=== PATIENT | female | born 1995 | race Caucasian/White ===

== ENCOUNTER 2019-01-12 08:53 | Emergency (ER) | payer BC ==
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
== END 2019-01-12 10:42 | disposition home or self-care (01) ==
LOC: MW.ED 08:53
DX: S06.0X0A Concussion without loss of consciousness, initial encounter (principal); V49.9XXA Car occupant (driver) (passenger) injured in unspecified traffic accident, initial encounter; Z79.899 Other long term (current) drug therapy
CPT/HCPCS: 70450; 70450-26; 99284-25

== ENCOUNTER 2021-01-09 09:07 | Inpatient (IN) | payer OTHER ==
[2021-01-09] MEDS ORDERED: Misoprostol 200 MCG Tab PO PRN (10:38)
[2021-01-09] MEDS ORDERED: Butorphanol 1 MG/ML SDV IVPUSH PRN (10:38)
[2021-01-09] MEDS ORDERED: Sodium Chloride 0.9% 20 ML SDV IV PRN (10:38)
[2021-01-09] MEDS ORDERED: Carboprost Tromethamine 250 MCG/1 ML Amp IM PRN (10:38)
[2021-01-09] MEDS ORDERED: Lidocaine 1% 50 ML MDV INJECT PRN (10:38)
[2021-01-09] MEDS ORDERED: Sodium Chloride 0.9% 2.5 ML Syringe FLUSH PRN (10:38)
[2021-01-09] MEDS ORDERED: Sodium Chloride 0.9% 10 ML Syringe FLUSH PRN (10:38)
[2021-01-09] MEDS ORDERED: Methylergonovine 0.2 MG/1 ML Amp IM PRN (10:38)
[2021-01-09] MEDS ORDERED: Nalbuphine 10 MG/1 ML Vial IVPUSH PRN (10:38)
[2021-01-09] MEDS ORDERED: Water For Irrigation,Sterile 1,000 ML Container IRR PRN (10:38)
[2021-01-09] MEDS ORDERED: Tranexamic Acid 1,000 MG in Sodium Chloride 0.9% 100 ML IV PRN (10:38)
[2021-01-09] MEDS ORDERED: Oxytocin/0.9 % Sodium Chloride 30 UNIT/500 ML BAG IV SCH (10:45)
[2021-01-09] MEDS ORDERED: Ampicillin 2 GM Vial ONE (11:22)
[2021-01-09] MEDS ORDERED: Sodium Chloride 0.9% 100 ML ONE (11:22)
[2021-01-09] MEDS: Lactated Ringers 1,000 ML IV SCH ×2 (11:28→17:41)
[2021-01-09] MEDS ORDERED: Ampicillin 2 GM in Sodium Chloride 0.9% 100 ML IV ONE (11:30)
[2021-01-09 12:20] LABS: BLOOD UREA NITROGEN,BUN 7 mg/dL (7.0-18.0); CARBON DIOXIDE,CO2 21.8 mmol/L (21.0-32.0); CHLORIDE,CL 105 mmol/L (98-107); GLUCOSE RANDOM 97 mg/dL (74-106); POTASSIUM,K 3.9 mmol/L (3.5-5.1); SODIUM,NA 139 mmol/L (136-145)
[2021-01-09] MEDS: Ampicillin 1 GM in Sodium Chloride 0.9% 50 ML IV SCH ×3 (15:30→23:21)
[2021-01-09] MEDS ORDERED: Ropivacaine HCl/PF 200 ML ONE (16:04)
--- NOTE | 2021-01-09 16:13 | PCM.POSTAN ---
POST ANESTHESIA ASSESSMENT - MENTAL STATUS Mental Status: Alert, Oriented - RESPIRATORY Respiratory Status: Respiratory Rate WNL, Airway Patent, O2 Saturation Stable - CARDIOVASCULAR CV Status: Pulse Rate WNL, Blood Pressure Stable - GASTROINTESTINAL GI Status: No Symptoms - POST OP HYDRATION Hydration Status: Adequate & Stable
--- NOTE | 2021-01-09 16:13 | PCM.PREANE ---
Preanesthetic Assessment - Anesthesia/Transfusion/Family Hx Anesthesia History: No Prior Anesthesia Transfusion History: No Prior Transfusion(s) - Review of Systems General: No Symptoms Pulmonary: No Symptoms Cardiovascular: No Symptoms Gastrointestinal: No Symptoms Neurological: No Symptoms Other: Reports: None - Physical Assessment NPO Status Date: 01/09/21 NPO Status Time: 00:00 Height: 5 ft 2 in Weight: 160 lb ASA Class: 2 Mental Status: Alert & Oriented x3 Airway Class: Mallampati = 1 Dentition: Reports: Normal Dentition ROM/Head Extension: Full Lungs: Clear to Auscultation, Normal Respiratory Effort Cardiovascular: Regular Rate, Regular Rhythm - Lab Values: Laboratory Last Values WBC 11.24 K/uL (4.0-11.0) H 01/09/21 10:59 RBC 4.26 M/uL (4.30-5.90) L 01/09/21 10:59 Hgb 13.4 g/dL (12.0-16.0) 01/09/21 10:59 Hct 38.6 % (36.0-46.0) 01/09/21 10:59 MCV 90.6 fL (80.0-98.0) 01/09/21 10:59 MCH 31.5 pg (27.0-32.0) 01/09/21 10:59 MCHC 34.7 g/dL (31.0-37.0) 01/09/21 10:59 RDW Std Deviation 42.8 fl (28.0-62.0) 01/09/21 10:59 RDW Coeff of Irina 13 % (11.0-15.0) 01/09/21 10:59 Plt Count 149 K/uL (150-400) L 01/09/21 10:59 MPV 12.90 fL (7.40-12.00) H 01/09/21 10:59 Nucleated RBC % 0.0 /100WBC 01/09/21 10:59 Nucleated RBCs # 0 K/uL 01/09/21 10:59 Sodium 139 mmol/L (136-145) 01/09/21 10:59 Potassium 3.9 mmol/L (3.5-5.1) 01/09/21 10:59 Chloride 105 mmol/L (98-107) 01/09/21 10:59 Carbon Dioxide 21.8 mmol/L (21.0-32.0) 01/09/21 10:59 BUN 7 mg/dL (7.0-18.0) 01/09/21 10:59 Creatinine 0.6 mg/dL (0.6-1.0) 01/09/21 10:59 Est Cr Clr Drug Dosing 111.39 mL/min 01/09/21 10:59 Estimated GFR (MDRD) > 60.0 ml/min 01/09/21 10:59 Glucose 97 mg/dL (74-106) 01/09/21 10:59 Uric Acid 3.4 mg/dL (2.6-7.2) 01/09/21 10:59 Calcium 8.3 mg/dL (8.5-10.1) L 01/09/21 10:59 Total Bilirubin 0.4 mg/dL (0.2-1.0) 01/09/21 10:59 AST 17 IU/L (15-37) 01/09/21 10:59 ALT 15 IU/L (14-63) 01/09/21 10:59 Alkaline Phosphatase 240 U/L (46-116) H 01/09/21 10:59 Total Protein 6.1 g/dL (6.4-8.2) L 01/09/21 10:59 Albumin 2.6 g/dL (3.4-5.0) L 01/09/21 10:59 Globulin 3.5 g/dL (2.6-4.0) 01/09/21 10:59 Albumin/Globulin Ratio 0.7 (0.9-1.6) L 01/09/21 10:59 Ur Random Creatinine 18.3 mg/dL 01/09/21 10:50 U Random Total Protein < 6.0 mg/dL (<11.9) 01/09/21 10:50 Protein/Creatinin Ratio TNP 01/09/21 10:50 Membrane Rupture POSITIVE 01/09/21 09:10 SARS-CoV-2 RNA (CATERINA) NEGATIVE (NEGATIVE) 01/09/21 10:50 Blood Type O POSITIVE 01/09/21 10:59 Antibody Screen NEGATIVE 01/09/21 10:59 - Allergies Allergies/Adverse Reactions: Allergies Allergy/AdvReac Type Severity Reaction Status Date / Time No Known Allergies Allergy Verified 01/12/19 09:02 - Acknowledgements Anesthesia Type Planned: Epidural Pt an Appropriate Candidate for the Planned Anesthesia: Yes Alternatives and Risks of Anesthesia Discussed w Pt/Guardian: Yes Pt/Guardian Understands and Agrees with Anesthesia Plan: Yes PreAnesthesia Questionnaire - Past Health History Medical/Surgical History: Denies Medical/Surgical History HEENT History: Reports: None Cardiovascular History: Reports: None Respiratory History: Reports: None Gastrointestinal History: Reports: None Genitourinary History: Reports: None TAX TECHNICIAN History: Reports: None Musculoskeletal History: Reports: None Neurological History: Reports: None Psychiatric History: Reports: None Endocrine/Metabolic History: Reports: None Hematologic History: Reports: None Immunologic History: Reports: None Oncologic (Cancer) History: Reports: None Dermatologic History: Reports: None - Past Surgical History Head Surgeries/Procedures: Reports: None HEENT Surgical History: Reports: None Cardiovascular Surgical History: Reports: None Respiratory Surgical History: Reports: None GI Surgical History: Reports: None Female Surgical History: Reports: None Endocrine Surgical History: Reports: None Neurological Surgical History: Reports: None Musculoskeletal Surgical History: Reports: None Oncologic Surgical History: Reports: None Dermatological Surgical History: Reports: None - SUBSTANCE USE Tobacco Use Status *Q: Never Tobacco User Tobacco Use Within Last Twelve Months: No Second Hand Smoke Exposure: No Recreational Drug Use History: No - HOME MEDS Home Medications: Home Meds busPIRone [Buspar] 15 mg PO BID 10/06/17 [History] - CURRENT (IN HOUSE) MEDS Current Meds: Current Medications Butorphanol Tartrate (Butorphanol 1 Mg/Ml Sdv) 1 mg IVPUSH Q1H PRN PRN Reason: Pain (severe 7-10) Carboprost Tromethamine (Carboprost Tromethamine 250 Mcg/1 Ml Amp) 250 mcg IM ASDIRECTED PRN PRN Reason: Post Hemorrhage Lactated Ringer's (Ringers, Lactated) 1,000 mls @ 150 mls/hr IV ASDIRECTED SAVANNAH Last Admin: 01/09/21 11:28 Dose: 150 mls/hr Documented by: Oxytocin/Sodium Chloride (Oxytocin 30 Unit In Ns 0.9% 500 Ml Premix) 30 unit in 500 mls @ 2 mls/hr IV TITRATE SAVANNAH Last Infusion: 01/09/21 14:00 Dose: 4 mls/hr Documented by: Tranexamic Acid 1,000 mg/ (Sodium Chloride) 110 mls @ 660 mls/hr IV ONETIME PRN PRN Reason: Bleeding Ampicillin Sodium 1 gm/ Sodium (Chloride) 50 mls @ 100 mls/hr IV Q4H SAVANNAH Last Admin: 01/09/21 15:30 Dose: 100 mls/hr Documented by: Lidocaine HCl (Lidocaine 1% 50 Ml Mdv) 50 ml INJECT ONETIME PRN PRN Reason: Laceration repair Methylergonovine Maleate (Methylergonovine 0.2 Mg/1 Ml Amp) 0.2 mg IM ASDIRECTED PRN PRN Reason: Post Hemorrhage Misoprostol (Misoprostol 200 Mcg Tab) 200 mcg PO ONETIME PRN PRN Reason: Post Hemorrhage Nalbuphine HCl (Nalbuphine 10 Mg/1 Ml Vial) 10 mg IVPUSH Q1H PRN PRN Reason: Pain (severe 7-10) Sodium Chloride (Sodium Chloride 0.9% 10 Ml Syringe) 10 ml FLUSH ASDIRECTED PRN PRN Reason: Keep Vein Open Sodium Chloride (Sodium Chloride 0.9% 2.5 Ml Syringe) 2.5 ml FLUSH ASDIRECTED PRN PRN Reason: Keep Vein Open Sodium Chloride (Sodium Chloride 0.9% 20 Ml Sdv) 10 ml IV ASDIRECTED PRN PRN Reason: IV Use Sterile Water (Water For Irrigation,Sterile 1,000 Ml Container) 1,000 ml IRR ASDIRECTED PRN PRN Reason: delivery Discontinued Medications Ampicillin Sodium (Ampicillin 2 Gm Vial) Confirm Administered Dose 2 gm .ROUTE .STK-MED ONE Stop: 01/09/21 11:23 Ampicillin Sodium 2 gm/ Sodium (Chloride) 100 mls @ 200 mls/hr IV ONETIME ONE Stop: 01/09/21 11:59 Last Admin: 01/09/21 11:32 Dose: 200 mls/hr Documented by: Sodium Chloride (Normal Saline Advbag) Confirm Administered Dose 100 mls @ as directed .ROUTE .STK-MED ONE Stop: 01/09/21 11:23 Ropivacaine (Naropin 0.2%) Confirm Administered Dose 200 mls @ as directed .ROUTE .STK-MED ONE Stop: 01/09/21 16:05
[2021-01-09] MEDS ORDERED: ePHEDrine 50 MG/ML SDV IVPUSH PRN ×2 (16:15)
[2021-01-09] MEDS ORDERED: Ropivacaine 0.2% 2MG/ML 200 ML Bag EPIDUR SCH (16:15)
--- NOTE | 2021-01-09 16:15 | PCM.SN.2 ---
- Pre-Procedure Checklist Attending Provider Aware: Yes Chart Reviewed: Yes Consent Signed: Yes Labs Reviewed: Yes VS/FHR Reviewed: Yes Patient Identification Confirmation Method: Reports: Chart Visual, ID Band Visual, Verbal Patient Pt an Appropriate Candidate for the Planned Anesthesia: Yes Alternatives and Risks of Anesthesia Discussed w Pt/Guardian: Yes - Procedure Procedure Start Date: 01/09/21 Procedure Start Time: 15:[address]: Reports: Blood Pressure, Heart Rate, SPO2 Functional IV: Yes Safety Measures: Reports: Patient Identified, Procedure Verified, Site Verified, Procedure Time Out Patient Position: Reports: Sitting Prep: Reports: Alcohol x3, Betadine x3 Local Anesthetic: Reports: Intradermal Wheal w Lidocaine 1% Regional Placement Level: Reports: L3-4 Needle: Reports: 17 g Touhy Approach: Reports: Midline Technique: Reports: ROSY Glass Syringe Parasthesia: Reports: None Fluid Obtained: Reports: None Test Dose Medication: Reports: Lidocaine 1.5% w Epinephrine 1:200,000 Test Dose Response: Reports: Negative Continuous Infusion Start Time: 16:05 Continuous Infusion Medication: 0.2 % Naropin Continuous Infusion Rate: 15 Continuous Infusion PCS Bolus Option: 4 Continuous Infusion Lockout Dose (cc/hr): 28 Patient Position Post Placement: Reports: Supline/TYE Post-procedure Pain Level: 3 VS and FHR Monitored in Unit Post Placement: Yes Procedure End Date: 01/09/21 Procedure End Time: 16:55
[2021-01-10] MEDS: Lactated Ringers 1,000 ML IV SCH (00:25)
[2021-01-10] MEDS ORDERED: Acetaminophen 325 MG Tab PO PRN (03:09)
[2021-01-10] MEDS: Ampicillin 1 GM in Sodium Chloride 0.9% 50 ML IV SCH ×6 (03:18→23:32)
[2021-01-10] MEDS ORDERED: fentaNYL 100 MCG/2 ML SDV ONE (04:07)
[2021-01-10] MEDS ORDERED: Ropivacaine HCl/PF 200 ML ONE (04:07)
[2021-01-10] MEDS: Clindamycin Phosphate in D5W 50 ML IV SCH ×3 (04:15→20:38)
--- NOTE | 2021-01-10 09:24 | PCM48HPAN ---
Post Anesthesia Note - EVALUATION WITHIN 48HRS OF ANESTHETIC Vital Signs in Normal Range: Yes Patient Participated in Evaluation: Yes Respiratory Function Stable: Yes Airway Patent: Yes Cardiovascular Function Stable: Yes Hydration Status Stable: Yes Pain Control Satisfactory: Yes Nausea and Vomiting Control Satisfactory: Yes Mental Status Recovered: Yes
--- NOTE | 2021-01-10 09:32 | PCM.DEL ---
L & D Note - General Info Date of Service: 01/10/21 Mother's Due Date: 01/20/21 - Delivery Note Labor: Spontaneous, Augmented by ARM, Augmented by Oxytocin Delivery Outcome: Livebirth Delivery Method: Spontaneous Vaginal Delivery-Single Delivery Mode: Vacuum Extraction Presentation: Right Occiput Anterior (MADALYN) Nuchal Cord: None Prep: Other Anesthesia Type: Epidural Episiotomy Type: None Laceration: Periurethral Suture type: Vicryl Suture size: 3-0 Placenta: Intact, Spontaneous Cord: 3 Vessels Estimated Blood Loss: 200 Resuscitation Needed: Yes : Bulb Syringe Score 1 min: 8 Score 5 min: 9 - General Info Date of Service: 01/10/21 - Patient Data Weight - Most Recent: 72.575 kg I&O - Last 24 Hours: Intake & Output 01/09/21 01/10/21 01/10/21 22:59 06:59 14:59 Output Total 1250 Balance -1250 Lab Results Last 24 Hours: Laboratory Results - last 24 hr 01/09/21 01/09/21 01/09/21 Range/Units 09:10 10:50 10:50 WBC (4.0-11.0) K/uL RBC (4.30-5.90) M/uL Hgb (12.0-16.0) g/dL Hct (36.0-46.0) % MCV (80.0-98.0) fL MCH (27.0-32.0) pg MCHC (31.0-37.0) g/dL RDW Std Deviation (28.0-62.0) fl RDW Coeff of Irina (11.0-15.0) % Plt Count (150-400) K/uL MPV (7.40-12.00) fL Nucleated RBC % /100WBC Nucleated RBCs # K/uL Sodium (136-145) mmol/L Potassium (3.5-5.1) mmol/L Chloride (98-107) mmol/L Carbon Dioxide (21.0-32.0) mmol/L BUN (7.0-18.0) mg/dL Creatinine (0.6-1.0) mg/dL Est Cr Clr Drug Dosing mL/min Estimated GFR (MDRD) ml/min Glucose (74-106) mg/dL Uric Acid (2.6-7.2) mg/dL Calcium (8.5-10.1) mg/dL Total Bilirubin (0.2-1.0) mg/dL AST (15-37) IU/L ALT (14-63) IU/L Alkaline Phosphatase (46-116) U/L Total Protein (6.4-8.2) g/dL Albumin (3.4-5.0) g/dL Globulin (2.6-4.0) g/dL Albumin/Globulin Ratio (0.9-1.6) Ur Random Creatinine 18.3 mg/dL U Random Total Protein < 6.0 (<11.9) mg/dL Protein/Creatinin Ratio TNP Membrane Rupture POSITIVE SARS-CoV-2 RNA (CATERINA) NEGATIVE (NEGATIVE) Blood Type Antibody Screen 01/09/21 01/09/21 01/09/21 Range/Units 10:59 10:59 10:59 WBC 11.24 H (4.0-11.0) K/uL RBC 4.26 L (4.30-5.90) M/uL Hgb 13.4 (12.0-16.0) g/dL Hct 38.6 (36.0-46.0) % MCV 90.6 (80.0-98.0) fL MCH 31.5 (27.0-32.0) pg MCHC 34.7 (31.0-37.0) g/dL RDW Std Deviation 42.8 (28.0-62.0) fl RDW Coeff of Irina 13 (11.0-15.0) % Plt Count 149 L (150-400) K/uL MPV 12.90 H (7.40-12.00) fL Nucleated RBC % 0.0 /100WBC Nucleated RBCs # 0 K/uL Sodium 139 (136-145) mmol/L Potassium 3.9 (3.5-5.1) mmol/L Chloride 105 (98-107) mmol/L Carbon Dioxide 21.8 (21.0-32.0) mmol/L BUN 7 (7.0-18.0) mg/dL Creatinine 0.6 (0.6-1.0) mg/dL Est Cr Clr Drug Dosing 111.39 mL/min Estimated GFR (MDRD) > 60.0 ml/min Glucose 97 (74-106) mg/dL Uric Acid (2.6-7.2) mg/dL Calcium 8.3 L (8.5-10.1) mg/dL Total Bilirubin 0.4 (0.2-1.0) mg/dL AST 17 (15-37) IU/L ALT 15 (14-63) IU/L Alkaline Phosphatase 240 H (46-116) U/L Total Protein 6.1 L (6.4-8.2) g/dL Albumin 2.6 L (3.4-5.0) g/dL Globulin 3.5 (2.6-4.0) g/dL Albumin/Globulin Ratio 0.7 L (0.9-1.6) Ur Random Creatinine mg/dL U Random Total Protein (<11.9) mg/dL Protein/Creatinin Ratio Membrane Rupture SARS-CoV-2 RNA (CATERINA) (NEGATIVE) Blood Type O POSITIVE Antibody Screen NEGATIVE 01/09/21 Range/Units 10:59 WBC (4.0-11.0) K/uL RBC (4.30-5.90) M/uL Hgb (12.0-16.0) g/dL Hct (36.0-46.0) % MCV (80.0-98.0) fL MCH (27.0-32.0) pg MCHC (31.0-37.0) g/dL RDW Std Deviation (28.0-62.0) fl RDW Coeff of Irina (11.0-15.0) % Plt Count (150-400) K/uL MPV (7.40-12.00) fL Nucleated RBC % /100WBC Nucleated RBCs # K/uL Sodium (136-145) mmol/L Potassium (3.5-5.1) mmol/L Chloride (98-107) mmol/L Carbon Dioxide (21.0-32.0) mmol/L BUN (7.0-18.0) mg/dL Creatinine (0.6-1.0) mg/dL Est Cr Clr Drug Dosing mL/min Estimated GFR (MDRD) ml/min Glucose (74-106) mg/dL Uric Acid 3.4 (2.6-7.2) mg/dL Calcium (8.5-10.1) mg/dL Total Bilirubin (0.2-1.0) mg/dL AST (15-37) IU/L ALT (14-63) IU/L Alkaline Phosphatase (46-116) U/L Total Protein (6.4-8.2) g/dL Albumin (3.4-5.0) g/dL Globulin (2.6-4.0) g/dL Albumin/Globulin Ratio (0.9-1.6) Ur Random Creatinine mg/dL U Random Total Protein (<11.9) mg/dL Protein/Creatinin Ratio Membrane Rupture SARS-CoV-2 RNA (CATERINA) (NEGATIVE) Blood Type Antibody Screen Med Orders - Current: Current Medications Acetaminophen (Acetaminophen 325 Mg Tab) 1,000 mg PO Q6H PRN PRN Reason: Tachycardia Butorphanol Tartrate (Butorphanol 1 Mg/Ml Sdv) 1 mg IVPUSH Q1H PRN PRN Reason: Pain (severe 7-10) Carboprost Tromethamine (Carboprost Tromethamine 250 Mcg/1 Ml Amp) 250 mcg IM ASDIRECTED PRN PRN Reason: Post Hemorrhage Ephedrine Sulfate (Ephedrine 50 Mg/Ml Sdv) 10 mg IVPUSH Q5M PRN PRN Reason: Hypotension Ephedrine Sulfate (Ephedrine 50 Mg/Ml Sdv) 10 mg IVPUSH Q1M PRN PRN Reason: Hypotension Lactated Ringer's (Ringers, Lactated) 1,000 mls @ 150 mls/hr IV ASDIRECTED [facility] Last Admin: 01/10/21 00:25 Dose: 150 mls/hr Documented by: Oxytocin/Sodium Chloride (Oxytocin 30 Unit In Ns 0.9% 500 Ml Premix) 30 unit in 500 mls @ 2 mls/hr IV TITRATE [facility] Last Infusion: 01/10/21 09:00 Dose: 999 mls/hr Documented by: Tranexamic Acid 1,000 mg/ (Sodium Chloride) 110 mls @ 660 mls/hr IV ONETIME PRN PRN Reason: Bleeding Ampicillin Sodium 1 gm/ Sodium (Chloride) 50 mls @ 100 mls/hr IV Q4H [facility] Last Admin: 01/10/21 07:36 Dose: 100 mls/hr Documented by: Gentamicin Sulfate 80 mg/ (Sodium Chloride) 52 mls @ 100 mls/hr IV Q8H [facility] Stop: 01/10/21 21:02 Last Admin: 01/10/21 04:45 Dose: 100 mls/hr Documented by: Clindamycin Phosphate (Cleocin In D5w 300 Mg/50 Ml) 50 mls @ 50 mls/hr IV Q8H [facility] Stop: 01/10/21 20:29 Last Admin: 01/10/21 04:15 Dose: 50 mls/hr Documented by: Lidocaine HCl (Lidocaine 1% 50 Ml Mdv) 50 ml INJECT ONETIME PRN PRN Reason: Laceration repair Methylergonovine Maleate (Methylergonovine 0.2 Mg/1 Ml Amp) 0.2 mg IM ASDIRECTED PRN PRN Reason: Post Hemorrhage Miscellaneous Medication (Phenylephrine Hcl In 0.9% Nacl 1 Mg/10 Ml Syringe) 0 .1 mg IVPUSH Q1M PRN PRN Reason: Hypotension Misoprostol (Misoprostol 200 Mcg Tab) 200 mcg PO ONETIME PRN PRN Reason: Post Hemorrhage Nalbuphine HCl (Nalbuphine 10 Mg/1 Ml Vial) 10 mg IVPUSH Q1H PRN PRN Reason: Pain (severe 7-10) Ropivacaine (Ropivacaine 0.2% 2mg/Ml 200 Ml Bag) 400 mg EPIDUR ASDIRECTED SAV[facility] Sodium Chloride (Sodium Chloride 0.9% 10 Ml Syringe) 10 ml FLUSH ASDIRECTED PRN PRN Reason: Keep Vein Open Sodium Chloride (Sodium Chloride 0.9% 2.5 Ml Syringe) 2.5 ml FLUSH ASDIRECTED PRN PRN Reason: Keep Vein Open Sodium Chloride (Sodium Chloride 0.9% 20 Ml Sdv) 10 ml IV ASDIRECTED PRN PRN Reason: IV Use Sterile Water (Water For Irrigation,Sterile 1,000 Ml Container) 1,000 ml IRR ASDIRECTED PRN PRN Reason: delivery Last Admin: 01/10/21 08:46 Dose: 1,000 ml Documented by: Discontinued Medications Ampicillin Sodium (Ampicillin 2 Gm Vial) Confirm Administered Dose 2 gm .ROUTE .STK-MED ONE Stop: 01/09/21 11:23 Last Admin: 01/09/21 19:20 Dose: Not Given Documented by: Fentanyl (Fentanyl 100 Mcg/2 Ml Sdv) Confirm Administered Dose 100 mcg .ROUTE .STK-MED ONE Stop: 01/10/21 04:08 Ampicillin Sodium 2 gm/ Sodium (Chloride) 100 mls @ 200 mls/hr IV ONETIME ONE Stop: 01/09/21 11:59 Last Admin: 01/09/21 11:32 Dose: 200 mls/hr Documented by: Sodium Chloride (Normal Saline Advbag) Confirm Administered Dose 100 mls @ as directed .ROUTE .STK-MED ONE Stop: 01/09/21 11:23 Last Admin: 01/09/21 19:19 Dose: Not Given Documented by: Ropivacaine (Naropin 0.2%) Confirm Administered Dose 200 mls @ as directed .ROUTE .STK-MED ONE Stop: 01/09/21 16:05 Last Admin: 01/09/21 19:20 Dose: Not Given Documented by: Clindamycin Phosphate 300 mg/ (Sodium Chloride) 52 mls @ 100 mls/hr IV Q8H [facility] Stop: 01/11/21 03:47 Ropivacaine (Naropin 0.2%) Confirm Administered Dose 200 mls @ as directed .ROUTE .ST-MED ONE Stop: 01/10/21 04:08 - Problem List & Annotations (1) Vaginal delivery SNOMED Code(s): 619370964 Code(s): O80 - ENCOUNTER FOR FULL-TERM UNCOMPLICATED DELIVERY Status: Acute Current Visit: Yes - Problem List Review Problem List Initiated/Reviewed/Updated: Yes
[2021-01-10] MEDS ORDERED: Ibuprofen 400 MG Tab PO PRN (09:33)
[2021-01-10] MEDS ORDERED: Lanolin 100% Cream 7 GM Tube TOP PRN (09:33)
[2021-01-10] MEDS ORDERED: Bisacodyl 10 MG Supp RECTAL PRN (09:33)
[2021-01-10] MEDS ORDERED: Acetaminophen 500 MG Tab PO PRN (09:33)
[2021-01-10] MEDS ORDERED: Methylergonovine 0.2 MG/1 ML Amp IM PRN (09:33)
[2021-01-10] MEDS ORDERED: Benzocaine/Menthol 20%-0.5% Spray 78 GM Cannister TOP PRN (09:33)
[2021-01-10] MEDS: Acetaminophen 500 MG Tab PO PRN (10:19)
[2021-01-10] MEDS: Witch Hazel Medicated Pads 40/Jar TOP PRN (10:19)
--- NOTE | 2021-01-10 14:02 | OR ---
SURGEON: Anahi Miranda M.D. DATE OF PROCEDURE: 01/10/2021 PREOPERATIVE DIAGNOSES: 1. 38 and 4/7 week intrauterine . 2. Spontaneous rupture of membranes. 3. Mild chorioamnionitis. 4. Group B streptococcus positive. POSTOPERATIVE DIAGNOSES: 1. 38 and 4/7 week intrauterine . 2. Spontaneous rupture of membranes. 3. Mild chorioamnionitis. 4. Group B streptococcus positive. 5. Arrest of descent. PRIMARY SURGEON: Anahi Miranda M.D. ANESTHESIA: Epidural. ESTIMATED BLOOD LOSS: 200 mL. FINDINGS: Liveborn female. scores 8 and 9. Weight 3330 g. Placenta spontaneous, Schultze intact, with three vessels. Periurethral laceration repaired. No other lacerations. COMPLICATIONS: None known. DISPOSITION: Mother and baby are in LDR in good condition. PROCEDURES: 1. Pitocin augmentation of labor. 2. Group B streptococcus prophylaxis. 3. Vacuum-assisted vaginal delivery. 4. Repair of periurethral laceration. BRIEF HISTORY: This is a 25-year-old female. She is G1, P0. She presented at 38 and 3/7 week gestation on 01/09/2021, having had spontaneous rupture of membranes sometime in the evening of 01/08/2021. She presented to Labor and Delivery. She was 3 cm dilated. She did have a forebag which was membrane ruptured, had been documented by [facility]. She was started on ampicillin for group B strep prophylaxis and Pitocin augmentation of labor. IUPC was placed. She progressed to complete at approximately 4:30 a.m. and she was started on ampicillin for group B strep prophylaxis, but gentamicin and clindamycin were added due to tachycardia and mildly elevated maternal temperature, although it was not a fever. DESCRIPTION OF PROCEDURE: With the patient in dorsal lithotomy position, the patient pushed over a 4-1/2 hour time period to a 5+ station, at which time after discussion, the patient did request to proceed with a vacuum-assisted vaginal delivery with risks discussed including vaginal laceration, scalp laceration, cephalohematoma, and intracranial hemorrhage for the baby. Understanding all these risks, she does desire to proceed. The fetus was in a right occiput anterior position. Estimated weight was 3500 g, and she did have a gynecoid pelvis. The bladder had been drained with a straight cath prior to proceeding. After consent was obtained, the vacuum was placed 2 cm anterior to the posterior fontanelle in the midsagittal line and over two contractions with no pop-off, the head was delivered over the perineum with support. The vacuum was removed. Subsequent delivery of the infant's shoulders and body was without difficulty. The was bulb-suctioned by nose and mouth and handed to the mother in the presence of the nurse attending delivery. The infant was a liveborn female, scores of 8 and 9, weighing 3330 g. After 2 minutes, the cord was doubly clamped and cut and the cord blood was collected for cord ABGs as well as routine cord blood sampling. Pitocin was initiated after delivery of the infant to assist with delivery of the placenta which was delivered spontaneously, Schultze intact with three vessels. Upon inspection of the pelvis and perineum, there were no vaginal sidewall, cervical, rectal, or perineal lacerations. There was a significant right periurethral laceration extending in a semi-lunar fashion to the right of the urethra and extending cephalad toward the clitoris. This was bleeding and a deep [id number] suture was placed with 3-0 Vicryl and hemostasis was obtained, and then a running suture was utilized to reapproximate the tissue. Miller catheter had been placed prior to proceeding with repair to define the urethra, and I have recommended that the catheter stay in place for 24 hours. Additionally, there was a small abrasion of the vagina posteriorly at 7 o'clock which was repaired with a [id number] suture of 3-0 Vicryl. Final sponge, needle, and instrument counts were correct. There were no known complications. Mother and baby remained in the LDR in good condition. TIR / CONSTANZA /[id number]
[2021-01-10] MEDS: Docusate Sodium 100 MG Cap PO PRN (22:15)
[2021-01-10] MEDS: busPIRone 5 MG Tab PO SCH (22:15)
[2021-01-11] MEDS: Ampicillin 1 GM in Sodium Chloride 0.9% 50 ML IV SCH ×2 (03:30→07:40)
[2021-01-11] MEDS: busPIRone 5 MG Tab PO SCH ×3 (05:54→22:01)
[2021-01-11] MEDS: Acetaminophen 500 MG Tab PO PRN (07:49)
--- NOTE | 2021-01-11 09:41 | PCM.PNPP ---
- General Info Date of Service: 01/11/21 Subjective Update: Patient seen at bedside , doing well , sandoval removed she voided , , Good pain control Functional Status: Reports: Pain Controlled, Tolerating Diet, Ambulating, Urinating - Review of Systems General: Reports: No Symptoms HEENT: Reports: No Symptoms Pulmonary: Reports: No Symptoms Cardiovascular: Reports: No Symptoms Gastrointestinal: Reports: No Symptoms Genitourinary: Reports: No Symptoms Musculoskeletal: Reports: No Symptoms Skin: Reports: No Symptoms Neurological: Reports: No Symptoms Psychiatric: Reports: No Symptoms - General Info Date of Service: 01/11/21 - Patient Data Vital Signs - Most Recent: Last Vital Signs Temp 36.3 C 01/11/21 08:00 Pulse 75 01/11/21 08:00 Resp 18 01/11/21 08:00 BP 135/86 01/11/21 08:00 Pulse Ox 96 01/11/21 08:00 Weight - Most Recent: 72.575 kg I&O - Last 24 Hours: Intake & Output 01/10/21 01/11/21 01/11/21 22:59 06:59 14:59 Intake Total 152 100 Output Total 2828 0870 979 Balance -5841 -7232 -550 Lab Results - Last 24 Hours: Laboratory Results - last 24 hr 01/10/21 01/11/21 Range/Units 08:59 05:30 Hgb 11.8 L (12.0-16.0) g/dL Hct 34.6 L (36.0-46.0) % Cord ABG pH 7.198 (7.18-7.38) Cord ABG Base Excess -7 (-10--2) Cord VBG pH 7.223 L (7.25-7.45) Cord VBG Base Excess -7 (-10--2) Med Orders - Current: Current Medications Acetaminophen (Acetaminophen 325 Mg Tab) 1,000 mg PO Q6H PRN PRN Reason: Tachycardia Acetaminophen (Acetaminophen 500 Mg Tab) 500 mg PO Q4H PRN PRN Reason: Pain (mild 1-3) Acetaminophen (Acetaminophen 500 Mg Tab) 1,000 mg PO Q4H PRN PRN Reason: Pain (mild 1-3) Last Admin: 01/11/21 07:49 Dose: 1,000 mg Documented by: Benzocaine/Menthol (Benzocaine/Menthol 20%-0.5% [place] 78 Gm Cannister) 78 gm TOP ASDIRECTED PRN PRN Reason: Perineal Comfort Measure Last Admin: 01/10/21 10:21 Dose: 1 can Documented by: Bisacodyl (Bisacodyl 10 Mg Supp) 10 mg RECTAL ONETIME PRN PRN Reason: Constipation Buspirone HCl (Buspirone 5 Mg Tab) 10 mg PO TID [facility] Last Admin: 01/11/21 05:54 Dose: 10 mg Documented by: Butorphanol Tartrate (Butorphanol 1 Mg/Ml Sdv) 1 mg IVPUSH Q1H PRN PRN Reason: Pain (severe 7-10) Carboprost Tromethamine (Carboprost Tromethamine 250 Mcg/1 Ml Amp) 250 mcg IM ASDIRECTED PRN PRN Reason: Post Hemorrhage Docusate Sodium (Docusate Sodium 100 Mg Cap) 100 mg PO Q12H PRN PRN Reason: Constipation Last Admin: 01/10/21 22:15 Dose: 100 mg Documented by: Emollient Ointment (Lanolin 100% Cream 7 Gm Tube) 0 gm TOP ASDIRECTED PRN PRN Reason: Sore Nipples Ephedrine Sulfate (Ephedrine 50 Mg/Ml Sdv) 10 mg IVPUSH Q5M PRN PRN Reason: Hypotension Ephedrine Sulfate (Ephedrine 50 Mg/Ml Sdv) 10 mg IVPUSH Q1M PRN PRN Reason: Hypotension Lactated Ringer's (Ringers, Lactated) 1,000 mls @ 150 mls/hr IV ASDIRECTED [facility] Last Admin: 01/10/21 00:25 Dose: 150 mls/hr Documented by: Oxytocin/Sodium Chloride (Oxytocin 30 Unit In Ns 0.9% 500 Ml Premix) 30 unit in 500 mls @ 2 mls/hr IV TITRATE [facility] Last Infusion: 01/10/21 09:00 Dose: 999 mls/hr Documented by: Tranexamic Acid 1,000 mg/ (Sodium Chloride) 110 mls @ 660 mls/hr IV ONETIME PRN PRN Reason: Bleeding Ibuprofen (Ibuprofen 400 Mg Tab) 400 mg PO Q4H PRN PRN Reason: Pain (mild 1-3) Ibuprofen (Ibuprofen 800 Mg Tab) 800 mg PO Q6H PRN PRN Reason: Cramping Lidocaine HCl (Lidocaine 1% 50 Ml Mdv) 50 ml INJECT ONETIME PRN PRN Reason: Laceration repair Methylergonovine Maleate (Methylergonovine 0.2 Mg/1 Ml Amp) 0.2 mg IM ASDIRECTED PRN PRN Reason: Post Hemorrhage Methylergonovine Maleate (Methylergonovine 0.2 Mg/1 Ml Amp) 0.2 mg IM ONETIME PRN PRN Reason: Excessive Vaginal Bleeding Miscellaneous Medication (Phenylephrine Hcl In 0.9% Nacl 1 Mg/10 Ml Syringe) 0.1 mg IVPUSH Q1M PRN PRN Reason: Hypotension Misoprostol (Misoprostol 200 Mcg Tab) 200 mcg PO ONETIME PRN PRN Reason: Post Hemorrhage Nalbuphine HCl (Nalbuphine 10 Mg/1 Ml Vial) 10 mg IVPUSH Q1H PRN PRN Reason: Pain (severe 7-10) Ropivacaine (Ropivacaine 0.2% 2mg/Ml 200 Ml Bag) 400 mg EPIDUR ASDIRECTED [facility] Sodium Chloride (Sodium Chloride 0.9% 10 Ml Syringe) 10 ml FLUSH ASDIRECTED PRN PRN Reason: Keep Vein Open Sodium Chloride (Sodium Chloride 0.9% 2.5 Ml Syringe) 2.5 ml FLUSH ASDIRECTED PRN PRN Reason: Keep Vein Open Sodium Chloride (Sodium Chloride 0.9% 20 Ml Sdv) 10 ml IV ASDIRECTED PRN PRN Reason: IV Use Sterile Water (Water For Irrigation,Sterile 1,000 Ml Container) 1,000 ml IRR ASDIRECTED PRN PRN Reason: delivery Last Admin: 01/10/21 08:46 Dose: 1,000 ml Documented by: Dianne Gamez (Dianne Gamez Medicated Pads 40/Jar) 1 pad TOP ASDIRECTED PRN PRN Reason: comfort care Last Admin: 01/10/21 10:19 Dose: 1 can Documented by: Discontinued Medications Ampicillin Sodium (Ampicillin 2 Gm Vial) Confirm Administered Dose 2 gm .ROUTE .STK-MED ONE Stop: 01/09/21 11:23 Last Admin: 01/09/21 19:20 Dose: Not Given Documented by: Fentanyl (Fentanyl 100 Mcg/2 Ml Sdv) Confirm Administered Dose 100 mcg .ROUTE .STK-MED ONE Stop: 01/10/21 04:08 Last Admin: 01/10/21 20:06 Dose: Not Given Documented by: Ampicillin Sodium 2 gm/ Sodium (Chloride) 100 mls @ 200 mls/hr IV ONETIME ONE Stop: 01/09/21 11:59 Last Admin: 01/09/21 11:32 Dose: 200 mls/hr Documented by: Ampicillin Sodium 1 gm/ Sodium (Chloride) 50 mls @ 100 mls/hr IV Q4H [facility] Stop: 01/11/21 09:00 Last Admin: 01/11/21 07:40 Dose: 100 mls/hr Documented by: Sodium Chloride (Normal Saline Advbag) Confirm Administered Dose 100 mls @ as directed .ROUTE .[facility] ONE Stop: 01/09/21 11:23 Last Admin: 01/09/21 19:19 Dose: Not Given Documented by: Ropivacaine (Naropin 0.2%) Confirm Administered Dose 200 mls @ as directed .ROUTE .[facility] ONE Stop: 01/09/21 16:05 Last Admin: 01/09/21 19:20 Dose: Not Given Documented by: Gentamicin Sulfate 80 mg/ (Sodium Chloride) 52 mls @ 100 mls/hr IV Q8H [facility] Stop: 01/10/21 21:02 Last Admin: 01/10/21 22:14 Dose: 100 mls/hr Documented by: Clindamycin Phosphate 300 mg/ (Sodium Chloride) 52 mls @ 100 mls/hr IV Q8H [facility] Stop: 01/11/21 03:47 Clindamycin Phosphate (Cleocin In D5w 300 Mg/50 Ml) 50 mls @ 50 mls/hr IV Q8H [facility] Stop: 01/10/21 20:29 Last Admin: 01/10/21 20:38 Dose: 50 mls/hr Documented by: Ropivacaine (Naropin 0.2%) Confirm Administered Dose 200 mls @ as directed .ROUTE .[facility] ONE Stop: 01/10/21 04:08 Last Admin: 01/10/21 20:06 Dose: Not Given Documented by: - Recovery Exam Fundal Tone: Firm Fundal Level: 1 Fingerbreadths Below Umbilicus Fundal Placement: Midline Lochia Amount: Scant, Small Lochia Color: Rubra/Red Perineum Description: Other (see below) Other Perinuem Description: daphnie urethral laceration with repair. Episiotomy/Laceration: Approximated Bladder Status: Voiding Urinary Elimination: Voided - Exam General: Alert HEENT: Pupils Equal Neck: Supple Lungs: Clear to Auscultation, Normal Respiratory Effort Cardiovascular: Regular Rate, Regular Rhythm GI/Abdominal Exam: Normal Bowel Sounds Extremities: Normal Inspection, Normal Range of Motion Psy/Mental Status: Alert - Problem List & Annotations (1) Vaginal delivery SNOMED Code(s): 563898937 Code(s): O80 - ENCOUNTER FOR FULL-TERM UNCOMPLICATED DELIVERY Status: Acute Current Visit: Yes - Problem List Review Problem List Initiated/Reviewed/Updated: Yes - Assessment Assessment:: 25yo P1 s/p PPD1 Rh positive , Rubella Immune , GBS positive - received ampicillin Suspected chorio - recieved antiobiotics till today No fevers - Plan Plan:: Routine care Pain control as needed Continue ambulation Regular diet Anticipate discharge tomorrow
[2021-01-11] MEDS: Ibuprofen 800 MG Tab PO PRN (22:00)
[2021-01-11] MEDS: Docusate Sodium 100 MG Cap PO PRN (22:00)
[2021-01-11] MEDS: Witch Hazel Medicated Pads 40/Jar TOP PRN (22:01)
[2021-01-12] MEDS: busPIRone 5 MG Tab PO SCH (06:07)
[2021-01-12] MEDS: Ibuprofen 800 MG Tab PO PRN (09:03)
--- NOTE | 2021-01-12 09:24 | PCM.PNPP ---
- General Info Date of Service: 01/12/21 Subjective Update: Patient doing well this morning. has improved. Pain well controlled, minimal lochia. Functional Status: Reports: Pain Controlled, Tolerating Diet, Ambulating, Urinating - Review of Systems General: Reports: No Symptoms HEENT: Reports: No Symptoms Pulmonary: Reports: No Symptoms Cardiovascular: Reports: No Symptoms Gastrointestinal: Reports: No Symptoms Genitourinary: Reports: No Symptoms Musculoskeletal: Reports: No Symptoms Skin: Reports: No Symptoms Neurological: Reports: No Symptoms Psychiatric: Reports: No Symptoms - Patient Data Vital Signs - Most Recent: Last Vital Signs Temp 36.8 C 01/12/21 08:00 Pulse 68 01/12/21 08:00 Resp 18 01/12/21 08:00 BP 129/89 01/12/21 08:00 Pulse Ox 96 01/12/21 08:00 Weight - Most Recent: 72.575 kg Lab Results - Last 24 Hours: Laboratory Results - last 24 hr 01/09/21 Range/Units 10:59 RPR Non-Reac (Non-Reac) Med Orders - Current: Current Medications Acetaminophen (Acetaminophen 325 Mg Tab) 1,000 mg PO Q6H PRN PRN Reason: Tachycardia Acetaminophen (Acetaminophen 500 Mg Tab) 500 mg PO Q4H PRN PRN Reason: Pain (mild 1-3) Acetaminophen (Acetaminophen 500 Mg Tab) 1,000 mg PO Q4H PRN PRN Reason: Pain (mild 1-3) Last Admin: 01/11/21 07:49 Dose: 1,000 mg Documented by: Benzocaine/Menthol (Benzocaine/Menthol 20%-0.5% [place] 78 Gm Cannister) 78 gm TOP ASDIRECTED PRN PRN Reason: Perineal Comfort Measure Last Admin: 01/10/21 10:21 Dose: 1 can Documented by: Bisacodyl (Bisacodyl 10 Mg Supp) 10 mg RECTAL ONETIME PRN PRN Reason: Constipation Buspirone HCl (Buspirone 5 Mg Tab) 10 mg PO TID [facility] Last Admin: 01/12/21 06:07 Dose: 10 mg Documented by: Butorphanol Tartrate (Butorphanol 1 Mg/Ml Sdv) 1 mg IVPUSH Q1H PRN PRN Reason: Pain (severe 7-10) Carboprost Tromethamine (Carboprost Tromethamine 250 Mcg/1 Ml Amp) 250 mcg IM ASDIRECTED PRN PRN Reason: Post Hemorrhage Docusate Sodium (Docusate Sodium 100 Mg Cap) 100 mg PO Q12H PRN PRN Reason: Constipation Last Admin: 01/11/21 22:00 Dose: 100 mg Documented by: Emollient Ointment (Lanolin 100% Cream 7 Gm Tube) 0 gm TOP ASDIRECTED PRN PRN Reason: Sore Nipples Ephedrine Sulfate (Ephedrine 50 Mg/Ml Sdv) 10 mg IVPUSH Q5M PRN PRN Reason: Hypotension Ephedrine Sulfate (Ephedrine 50 Mg/Ml Sdv) 10 mg IVPUSH Q1M PRN PRN Reason: Hypotension Lactated Ringer's (Ringers, Lactated) 1,000 mls @ 150 mls/hr IV ASDIRECTED SAVANNAH Last Admin: 01/10/21 00:25 Dose: 150 mls/hr Documented by: Oxytocin/Sodium Chloride (Oxytocin 30 Unit In Ns 0.9% 500 Ml Premix) 30 unit in 500 mls @ 2 mls/hr IV TITRATE [facility] Last Infusion: 01/10/21 09:00 Dose: 999 mls/hr Documented by: Tranexamic Acid 1,000 mg/ (Sodium Chloride) 110 mls @ 660 mls/hr IV ONETIME PRN PRN Reason: Bleeding Ibuprofen (Ibuprofen 400 Mg Tab) 400 mg PO Q4H PRN PRN Reason: Pain (mild 1-3) Ibuprofen (Ibuprofen 800 Mg Tab) 800 mg PO Q6H PRN PRN Reason: Cramping Last Admin: 01/12/21 09:03 Dose: 800 mg Documented by: Lidocaine HCl (Lidocaine 1% 50 Ml Mdv) 50 ml INJECT ONETIME PRN PRN Reason: Laceration repair Methylergonovine Maleate (Methylergonovine 0.2 Mg/1 Ml Amp) 0.2 mg IM ASDIRECTED PRN PRN Reason: Post Hemorrhage Methylergonovine Maleate (Methylergonovine 0.2 Mg/1 Ml Amp) 0.2 mg IM ONETIME PRN PRN Reason: Excessive Vaginal Bleeding Miscellaneous Medication (Phenylephrine Hcl In 0.9% Nacl 1 Mg/10 Ml Syringe) 0.1 mg IVPUSH Q1M PRN PRN Reason: Hypotension Misoprostol (Misoprostol 200 Mcg Tab) 200 mcg PO ONETIME PRN PRN Reason: Post Hemorrhage Nalbuphine HCl (Nalbuphine 10 Mg/1 Ml Vial) 10 mg IVPUSH Q1H PRN PRN Reason: Pain (severe 7-10) Ropivacaine (Ropivacaine 0.2% 2mg/Ml 200 Ml Bag) 400 mg EPIDUR ASDIRECTED SAVANNAH Sodium Chloride (Sodium Chloride 0.9% 10 Ml Syringe) 10 ml FLUSH ASDIRECTED PRN PRN Reason: Keep Vein Open Sodium Chloride (Sodium Chloride 0.9% 2.5 Ml Syringe) 2.5 ml FLUSH ASDIRECTED PRN PRN Reason: Keep Vein Open Sodium Chloride (Sodium Chloride 0.9% 20 Ml Sdv) 10 ml IV ASDIRECTED PRN PRN Reason: IV Use Sterile Water (Water For Irrigation,Sterile 1,000 Ml Container) 1,000 ml IRR ASDIRECTED PRN PRN Reason: delivery Last Admin: 01/10/21 08:46 Dose: 1,000 ml Documented by: Dianne Gamez (Dianne Gamez Medicated Pads 40/Jar) 1 pad TOP ASDIRECTED PRN PRN Reason: comfort care Last Admin: 01/11/21 22:01 Dose: 1 container Documented by: Discontinued Medications Ampicillin Sodium (Ampicillin 2 Gm Vial) Confirm Administered Dose 2 gm .ROUTE .STK-MED ONE Stop: 01/09/21 11:23 Last Admin: 01/09/21 19:20 Dose: Not Given Documented by: Fentanyl (Fentanyl 100 Mcg/2 Ml Sdv) Confirm Administered Dose 100 mcg .ROUTE .STK-MED ONE Stop: 01/10/21 04:08 Last Admin: 01/10/21 20:06 Dose: Not Given Documented by: Ampicillin Sodium 2 gm/ Sodium (Chloride) 100 mls @ 200 mls/hr IV ONETIME ONE Stop: 01/09/21 11:59 Last Admin: 01/09/21 11:32 Dose: 200 mls/hr Documented by: Ampicillin Sodium 1 gm/ Sodium (Chloride) 50 mls @ 100 mls/hr IV Q4H [facility] Stop: 01/11/21 09:00 Last Admin: 01/11/21 07:40 Dose: 100 mls/hr Documented by: Sodium Chloride (Normal Saline Advbag) Confirm Administered Dose 100 mls @ as directed .ROUTE .STK-MED ONE Stop: 01/09/21 11:23 Last Admin: 01/09/21 19:19 Dose: Not Given Documented by: Ropivacaine (Naropin 0.2%) Confirm Administered Dose 200 mls @ as directed .ROUTE .STK-MED ONE Stop: 01/09/21 16:05 Last Admin: 01/09/21 19:20 Dose: Not Given Documented by: Gentamicin Sulfate 80 mg/ (Sodium Chloride) 52 mls @ 100 mls/hr IV Q8H [facility] Stop: 01/10/21 21:02 Last Admin: 01/10/21 22:14 Dose: 100 mls/hr Documented by: Clindamycin Phosphate 300 mg/ (Sodium Chloride) 52 mls @ 100 mls/hr IV Q8H [facility] Stop: 01/11/21 03:47 Clindamycin Phosphate (Cleocin In D5w 300 Mg/50 Ml) 50 mls @ 50 mls/hr IV Q8H [facility] Stop: 01/10/21 20:29 Last Admin: 01/10/21 20:38 Dose: 50 mls/hr Documented by: Ropivacaine (Naropin 0.2%) Confirm Administered Dose 200 mls @ as directed .ROUTE .STK-MED ONE Stop: 01/10/21 04:08 Last Admin: 01/10/21 20:06 Dose: Not Given Documented by: - Interaction Infant Disposition, : in Room with Family Interaction: Holding Infant Infant Feeding: Breastfed Infant; Nursed Well Support Person: - Recovery Exam Fundal Tone: Firm Fundal Level: 1 Fingerbreadths Below Umbilicus Fundal Placement: Midline Lochia Amount: Scant Lochia Color: Rubra/Red Other Perinuem Description: daphnie urethral laceration with repair. Bladder Status: Voiding Urinary Elimination: Voided - Exam General: Alert, Oriented Neck: Supple Lungs: Normal Respiratory Effort GI/Abdominal Exam: Soft, Non-Tender, No Distention Extremities: Non-Tender, No Pedal Edema Skin: Warm, Dry, Intact Neurological: No New Focal Deficit Psy/Mental Status: Alert, Normal Affect, Normal Mood - Problem List & Annotations (1) Vaginal delivery SNOMED Code(s): 181269528 Code(s): O80 - ENCOUNTER FOR FULL-TERM UNCOMPLICATED DELIVERY Status: Acute Current Visit: Yes - Problem List Review Problem List Initiated/Reviewed/Updated: Yes - My Orders Last 24 Hours: My Active Orders 01/12/21 09:23 Ready for Discharge [RC] PER UNIT ROUTINE - Assessment Assessment:: 25yo P1 s/p PPD2 Rh positive , Rubella Immune , GBS positive - received ampicillin - Plan Plan:: Continue routine care. Discharge home today. Reviewed discharge instructions/precautions. All questions answered.
[2021-01-12] MEDS: Docusate Sodium 100 MG Cap PO PRN (10:56)
== END 2021-01-12 13:20 | disposition home or self-care (01) | DRG 805 ==
LOC: MW.OBCHECK 09:07 → MW.OB 11:51 → OBSVTOIN 11:51 → MW.OB 01-10 16:55
PROVIDERS: ADMIT Obstetrics & Gynecology; ATTEND Obstetrics & Gynecology
PROC: 10D07Z6 Extraction of Products of Conception, Vacuum, Via Natural or Artificial Opening (ICD-10-PCS; principal; 2021-01-09)
PROC: 0HQ9XZZ Repair Perineum Skin, External Approach (ICD-10-PCS; 2021-01-09)
PROC: 3E0R3BZ Introduction of Anesthetic Agent into Spinal Canal, Percutaneous Approach (ICD-10-PCS; 2021-01-09)
PROC: 00HU33Z Insertion of Infusion Device into Spinal Canal, Percutaneous Approach (ICD-10-PCS; 2021-01-09)
PROC: 4A1HXCZ Monitoring of Products of Conception, Cardiac Rate, External Approach (ICD-10-PCS; 2021-01-09)
PROC: 10907ZC Drainage of Amniotic Fluid, Therapeutic from Products of Conception, Via Natural or Artificial Opening (ICD-10-PCS; 2021-01-09)
PROC: 10H07YZ Insertion of Other Device into Products of Conception, Via Natural or Artificial Opening (ICD-10-PCS; 2021-01-09)
DX: O99.824 Streptococcus B carrier state complicating childbirth (principal); O41.1230 Chorioamnionitis, third trimester, not applicable or unspecified; Z37.0 Single live birth; Z3A.38 38 weeks gestation of pregnancy; O71.82 Other specified trauma to perineum and vulva; O62.2 Other uterine inertia; Z20.822 Contact with and (suspected) exposure to COVID-19
CPT/HCPCS: 01967; 36415; 51701; 51702; 59025; 59409; 80053; 82570; 82803; 84112; 84156; 84550; 85014; 85018; 85027; 86592; 86850; 86900; 86901; A9270-GY; J0290; J1580; J2590; J2795; J3010; J3490; J7120; U0002